=== PATIENT | male | born 1970 | race Caucasian/White ===

== ENCOUNTER 2018-08-04 16:01 | Inpatient (IN) ==
[2018-08-04] MEDS ORDERED: ASPIRIN PO ONE ×2 (16:25→16:51)
[2018-08-04] MEDS ORDERED: ASPIRIN PR ONE (16:25)
[2018-08-04 16:55] LABS: ALLEN TEST YES; BE 6.6 mmoll (-3.0-3.0); BLOOD TYPE ARTERIAL; HCO3-(ACT) 29.9 mmoll (20.0-26.0); METHB 1.2 % (0.0-1.5); O2(CT) 20.7 mL/dL (15.0-23.0); O2HB 93.4 % (95.0-99.0); PO2(98.6) 134 mmHg (60-100); SAMPLE BLOOD; SAO2 99.2 % (95.0-100.0); THB 15.6 g/dL (11.5-17.4); pH(98.6) 7.29 (7.35-7.45)
[2018-08-04 16:56] LABS: MODALITY NRB; PCO2(98.6) 76 mmHg (35-45)
[2018-08-04 16:58] LABS: BASO# 0.07 X1000 (0.0-0.2); BASO% 0.4 % (0.0-0.8); EOS# 0.15 X1000 (0.0-0.7); EOS% 0.8 % (0.0-10.0); HEMATOCRIT 51.1 % (42.0-52.0); HEMOGLOBIN 15.6 g/dL (14.0-18.0); IMM GRAN# 0.05 X1000 (0.0-0.04); IMM GRAN% 0.3 % (0.0-0.5); INR 1.08; LYMPH# 1.06 X1000 (1.2-3.4); LYMPH% 5.7 % (20.5-51.1); MCH 28.8 PG (27-31); MCHC 30.5 g/dL (33-37); MCV 94.5 FL (81-99); MONO# 1.92 X1000 (0.11-0.59); MONO% 10.3 % (1.7-9.3); MPV 10.7 FL (7.4-10.4); NEUT# 15.43 X1000 (1.4-6.5); NEUT% 82.5 % (42.2-75.2); PLT 342 X1000 (130-400); PROTIME 14.9 Seconds (11.0-16.0); RBC 5.41 XMIL (4.7-6.1); RDW 14.9 % (11.5-14.5); WBC 18.68 X1000 (4.8-10.8)
[2018-08-04] MEDS ORDERED: DUONEB (A & A) INH ONE (16:58)
[2018-08-04] MEDS ORDERED: SOLU-MEDROL IV ONE (16:58)
[2018-08-04 16:59] LABS: PTT 34.1 Seconds (22.3-41.8)
[2018-08-04] MEDS ORDERED: ROCEPHIN 1 GM in NS 50 ML IV ONE (17:03)
[2018-08-04 17:04] LABS: AGAP 9; ALB/GLOB RATIO 1.2; ALBUMIN 3.9 g/dL (3.5-5.0); ALKALINE PHOSPHATASE 119 U/L (32-122); BUN 17 mg/dL (8-22); CALCIUM 8.9 mg/dL (8.8-10.2); CHLORIDE 95 mmol/L (98-107); CK PROFILE 74 U/L (24-204); COSMO 285; CREATININE 0.6 mg/dL (0.7-1.2); ESTIMATED GFR > 60; GLUCOSE 111 mg/dL (70-104); GOT 44 U/L (10-34); GPT 119 U/L (10-44); POTASSIUM 4.1 mmol/L (3.5-5.1); SODIUM 142 mmol/L (136-145); TCO2 38 mmol/L (25-35); TOTAL BILIRUBIN 0.46 mg/dL (0.20-1.00); TOTAL PROTEIN 7.2 g/dL (6.3-8.3)
[2018-08-04] MEDS ORDERED: NS 1,000 ML IV ONE (17:04)
--- NOTE | 2018-08-04 17:35 | Diag Imaging Result Doc PS360 ---
EXAM: CHEST-PORTABLE HISTORY: SOB, WHEEZE TECHNIQUE: Portable chest single view COMPARISON: 06/10/2017 FINDINGS: The lungs are well expanded. The heart is not enlarged. There is mild vascular distention. There are no infiltrates. No effusion identified. IMPRESSION: Mild pulmonary edema. Electronically signed by Nathan Guallpa 08/04/2018 5:33 PM
[2018-08-04] MEDS ORDERED: LASIX IV ONE ×2 (17:52→20:14)
--- NOTE | 2018-08-04 17:55 | PROVIDER DOCUMENTATION ---
This chart was entered by Evelyne Bennett Scribe, acting as scribe for Ana Tristan MD. HPI-Respiratory General - General Chief Complaint: Shortness of Breath Stated Complaint: SOB/FEET SWOLLEN Time Seen by Provider: 08/04/18 16:22 Source: patient, family () Unable to obtain history due to:: urgency Allergies/Adverse Reactions: Patient Allergies Allergy/AdvReac Type Severity Reaction Status Date / Time ibuprofen Allergy NAUSEA/VOMI Verified 02/08/18 15:43 TING tramadol Allergy NAUSEA/VOMI Verified 02/08/18 15:43 TING Home Medications: Home Medication List Medication Instructions Recorded Confirmed Last Taken Type Budesonide/Formoterol Fumarate 10.2 gm XX PRN PRN 02/08/18 08/04/18 02/08/18 History [Symbicort 160-4.5 Mcg Inhaler] Buprenorphine S.l. [Subutex] 8 mg SL BID 08/04/18 08/04/18 Unknown History - History of Present Illness-Resp Nature of Presenting Problem: 48 yowm presents to the ed with c/o worsening sob and BLE edema with productive cough. pt has COPD and a known smoker. pt denies CHF. pt came in today with O2 sat 67%on RA and was placed on non rebreather at 15LPM with O2 sat 97% Quality of Pain: reports: aching (bilateral ankle pain) Severity in ED: reports: severe (sob) Onset/Duration: reports: gradual Timing: reports: still present Exposure: reports: unknown cause Cough Quality/Degree: reports: moderate, productive cough (green sputum) Episode Frequency: occasional episodes Current Respiratory Medication Therapy: Initiated see nurses note Modifying Factors: improves with: oxygen. worse with: exertion, lying down Associated Symptoms: reports: cough, shortness of breath, other (BLE edema/ bilateral ankle pain). denies: chest pain/soreness, dizziness, fever/chills Similar Symptoms Previously?: Yes (copd) Recently seen or treated by another doctor?: No Review of Systems - Adult - REVIEW OF SYSTEMS - ADULT ROS:: ROS per family ( at bedside) Constitutional: reports: weight loss (30lbs in 1 year). denies: chills, fever Eyes: reports: no symptoms reported Ears, Nose, Mouth & Throat: reports: no symptoms reported Cardiovascular: reports: see HPI, edema. denies: chest pain, palpitations Respiratory: reports: see HPI, cough, excessive sputum production (green), shortness of breath, wheezing Gastrointestinal: denies: diarrhea, nausea, vomiting Genitourinary: reports: no symptoms reported Musculoskeletal: reports: no symptoms reported Integumentary: reports: no symptoms reported Neurological: denies: dizziness/vertigo, headache/migraines Psychiatric: reports: no symptoms reported Endocrine: reports: no symptoms reported Hematologic/Lymphatic: reports: no symptoms reported Allergic/Immunologic: reports: no symptoms reported All Other Systems: Reviewed and Negative Past History - Adult - PAST MEDICAL HISTORY-ADULT Review of Records: reports: Old Records Reviewed, Nursing Assessment Review, Medications Reviewed, Social history reviewed & non-contributory. Major Childhood Illnesses: reports: denies history Cardiovascular: reports: denies history Respiratory: reports: COPD Gastrointestinal: reports: denies history Obstetrical/Gynecological: reports: denies history Genitourinary: reports: denies history Musculoskeletal: reports: arthritis, chronic pain, neck/back injury Neurological: reports: denies history Psychiatric: reports: denies history Endocrine/Immune: reports: denies history Other Conditions: reports: denies history - PRIOR SURGERIES/PROCEDURES Surgical/Procedure History: reports: appendectomy - IMMUNIZATION STATUS Childhood Immunizations: See Nurse Assessment Flu Vaccine: See Nurse Assessment - FAMILY HISTORY Family History: reviewed, not pertinent - SOCIAL HISTORY Smoking: cigarettes, less than 1 pack/day Provider spent 3-5 mins advising pt. on dangers of tobacco.: Discussed manners to quit use, and f/u contacts for add'l counseling. Substance Use: denies Alcohol Use Frequency: never Living Situation: family Physical Exam-General - PHYSICAL EXAM-ADULT Initial Vital Signs Reviewed: Yes - CONSTITUTIONAL General Appearance: alert, moderate distress. negative: appears well - EYES Eyes: PERRL/EOMI, pink conjunctivae - HEAD, EARS, NOSE, MOUTH & THROAT HENMT: moist mucous membranes - NECK Neck: normal inspection - RESPIRATORY Respiratory: respiratory distress, decreased breath sounds, accessory muscle use , wheezing. negative: crackles, rales, rhonchi - CARDIOVASCULAR Cardiovascular: normal peripheral pulses, tachycardia (102) - GASTROINTESTINAL (ABDOMEN) Abdominal Exam: normal bowel sounds, non tender, soft - LYMPHATIC Lymphatic: no adenopathy - MUSCULOSKELETAL Back Exam: normal inspection Extremity: normal capillary refill, pelvis stable, pedal edema, swelling (BLE edema), tenderness (ilateral ankle pain with edema) DTR: ankle (R): 2+, ankle (L): 2+ - SKIN Integumentary: warm/dry, pallor - NEUROLOGIC Neurologic: grossly normal, no motor/sensory deficits - PSYCHIATRIC Psych/Mental Status: normal mood/affect, normal thought content, normal thought process, oriented x 3 Progress - PLAN OF CARE/RESULTS Progress/Plan/Lab Results: Vital Signs - 8 hr 08/04/18 16:06 08/04/18 16:19 08/04/18 16:29 Temperature 98.7 F Pulse Rate 101 H 100 H 94 H Respiratory Rate 22 21 16 Blood Pressure 116/70 103/71 115/77 O2 Sat by Pulse Oximetry 67 L 88 L 100 08/04/18 16:33 08/04/18 17:02 08/04/18 17:17 Temperature Pulse Rate 96 H 89 83 Respiratory Rate 17 17 20 Blood Pressure 110/78 110/79 O2 Sat by Pulse Oximetry 100 100 100 08/04/18 17:20 08/04/18 17:30 08/04/18 17:32 Temperature Pulse Rate 85 89 90 Respiratory Rate 19 18 18 Blood Pressure 114/76 O2 Sat by Pulse Oximetry 100 100 100 08/04/18 17:40 Temperature Pulse Rate 84 Respiratory Rate 18 Blood Pressure O2 Sat by Pulse Oximetry 100 Laboratory Results - last 24 hr 08/04/18 08/04/18 08/04/18 16:20 16:20 16:20 WBC 18.68 H RBC 5.41 Hgb 15.6 Hct 51.1 MCV 94.5 MCH 28.8 MCHC 30.5 L RDW Std Deviation 14.9 H Plt Count 342 MPV 10.7 H Immature Gran % (Auto) 0.3 Neut % (Auto) 82.5 H Lymph % (Auto) 5.7 L [place] % (Auto) 10.3 H Eos % (Auto) 0.8 Baso % (Auto) 0.4 Immature Gran # (Auto) 0.05 H Neut # (Auto) 15.43 H Lymph # (Auto) 1.06 L [place] # (Auto) 1.92 H Eos # (Auto) 0.15 Baso # (Auto) 0.07 PT INR PTT (Actin FS) Specimen Type Sample Site pH pCO2 pO2 HCO3 Base Excess Oxyhemoglobin ABG O2 Sat (Calculated) ABG O2 Saturation ABG Carboxyhemoglobin ABG Methemoglobin Levi Test A-a O2 Difference Total Hemoglobin Lactate Liter Flow Blood Gas Modality FiO2 % Sodium 142 Potassium 4.1 Chloride 95 L Carbon Dioxide 38 H Anion Gap 9 BUN 17 Creatinine 0.6 L Estimated GFR/1.73 m2 > 60 BUN/Creatinine Ratio 28 Glucose 111 H Calculated Osmolality 285 Calcium 8.9 Total Bilirubin 0.46 AST 44 H ALT 119 H Alkaline Phosphatase 119 Creatine Kinase 74 Troponin T Mbv-D-Midtaxuzsmz Pept 3590 H Total Protein 7.2 Albumin 3.9 Globulin 3.3 Albumin/Globulin Ratio 1.2 08/04/18 08/04/18 08/04/18 16:20 16:20 16:37 WBC RBC Hgb Hct MCV MCH MCHC RDW Std Deviation Plt Count MPV Immature Gran % (Auto) Neut % (Auto) Lymph % (Auto) [place] % (Auto) Eos % (Auto) Baso % (Auto) Immature Gran # (Auto) Neut # (Auto) Lymph # (Auto) [place] # (Auto) Eos # (Auto) Baso # (Auto) PT 14.9 INR 1.08 PTT (Actin FS) 34.1 Specimen Type ARTERIAL Sample Site R RADIAL pH 7.29 L pCO2 76 H* pO2 134 H HCO3 29.9 H Base Excess 6.6 H Oxyhemoglobin 93.4 L ABG O2 Sat (Calculated) 20.7 ABG O2 Saturation 99.2 ABG Carboxyhemoglobin 4.50 H ABG Methemoglobin 1.2 Levi Test YES A-a O2 Difference 484.0 Total Hemoglobin 15.6 Lactate 1.90 Liter Flow 15.0 Blood Gas Modality NRB FiO2 % 100.0 Sodium Potassium Chloride Carbon Dioxide Anion Gap BUN Creatinine Estimated GFR/1.73 m2 BUN/Creatinine Ratio Glucose Calculated Osmolality Calcium Total Bilirubin AST ALT Alkaline Phosphatase Creatine Kinase Troponin T < 0.010 Lmi-K-Nzwyynjuiuj Pept Total Protein Albumin Globulin Albumin/Globulin Ratio Orders Category Date Time Status Cardiac Monitoring DIRECTED Care 08/04/18 16:25 Active Oxygen Therapy- ED Nursing DIRECTED Care 08/04/18 16:25 Active Saline Loc NOW Care 08/04/18 16:25 Active CHEST-PORTABLE [RAD] Stat Exams 08/04/18 16:25 Completed ABG [RESP] Routine Lab 08/04/18 16:37 Completed CBC WITH ELECTRONIC DIFF [HEME] Stat Lab 08/04/18 16:20 Completed CK PROFILE [SP CHEM] Stat Lab 08/04/18 16:20 Completed COMPREHENSIVE METABOLIC PANEL [CHEM] Stat Lab 08/04/18 16:20 Completed PRO B-NATRIURETIC PEPTIDE Stat Lab 08/04/18 16:20 Completed PROTIME WITH INR [COAG] Stat Lab 08/04/18 16:20 Completed PTT [COAG] Stat Lab 08/04/18 16:20 Completed TROPONIN T Stat Lab 08/04/18 16:20 Completed 0.9% Sodium Chloride Inj [Ns] 1,000 ml Med 08/04/18 17:04 Active IV 999 mls/hr Albuterol 2.5MG/Ipratrop 0.5MG [Duoneb (A & A)] Med 08/04/18 16:58 Discontinued 9 ml INH NOW ONE Aspirin Med 08/04/18 16:25 Discontinued 300 mg AK NOW ONE Aspirin Med 08/04/18 16:25 Discontinued 325 mg PO NOW ONE Aspirin Med 08/04/18 16:51 Discontinued 325 mg PO NOW ONE CefTRIAXONE [Rocephin] 1 gm Med 08/04/18 17:03 Discontinued 0.9% Sodium Chloride Inj [Ns] 50 ml IV NOW Methylprednisolone Sod Succ [Solu-Medrol] Med 08/04/18 16:58 Discontinued 80 mg IV NOW ONE Aerosol Treatments Routine Oth 08/04/18 16:58 Completed Aerosol Treatments Stat Oth 08/04/18 16:58 Completed BIPAP Stat Oth 08/04/18 16:59 Active CP/SOB/Palp >45 yrs of Age Stat Oth 08/04/18 16:25 Ordered EKG [EKG] Stat Ther 08/04/18 16:25 Ordered Transfer/Admit Order [TRANSFER] Routine Transfer 08/04/18 17:13 Ordered Result Diagrams: 08/04/18 16:20 08/04/18 16:20 - REASSESSMENT Reassessment #1 Time Reassessed: 16:38 Status: improving Reassessment #2 Time Reassessed: 17:34 Status: improving (Now on Bipap.) - EKG 1 Time of EKG reading by physician:: 16:09 EKG Read and Signed by:: Rachel Bradshaw EKG Interpretation (*Must complete 3 of following elements*): Abnormal Rate: 97 Rhythm: nsr [place]: normal QRS: other (right atrial enlargement) AK Interval: normal ST Wave: normal Comments: nonspecific t wave abnormality/prolonged QT - XRAY 1 XRAY: Bilateral XRAY Study: Chest (EXAM: CHEST-PORTABLE HISTORY: SOB, WHEEZE TECHNIQUE: Portable chest single view COMPARISON: 06/10/2017 FINDINGS: The lungs are well expanded. The heart is not enlarged. There is mild vascular distention. There are no infiltrates. No effusion identified. IMPRESSION: Mild pulmonary edema. Electronically signed by Nathan Guallpa 08/04/2018 5:33 PM) Impression: See EMR Report (EXAM: CHEST-PORTABLE HISTORY: SOB, WHEEZE TECHNIQUE: Portable chest single view COMPARISON: 06/10/2017 FINDINGS: The lungs are well expanded. The heart is not enlarged. There is mild vascular distention. There are no infiltrates. No effusion identified. IMPRESSION: Mild pulmonary edema. Electronically signed by Nathan Guallpa 08/04/2018 5: 33 PM 08/04/18 1733 Interpreting Physician: Nathan Guallpa MD Dictated Date/Time: 08/04/18 1733 cc: Ana Strickland MD; Dalton Núñez Departure - Departure Date of Disposition Decision: 08/04/18 Time of Disposition Decision: 17:16 DIAGNOSIS: COPD exacerbation, Tobacco use disorder, SOB (shortness of breath) Sepsis Qualifiers: Sepsis type: sepsis due to unspecified organism Qualified Code(s): A41.9 - Sepsis, unspecified organism Pulmonary edema Qualifiers: Chronicity: acute Qualified Code(s): J81.0 - Acute pulmonary edema Disposition: ADMITTED INPATIENT 09 Certified Medical Emergency: Emergent Condition: Stable - Critical Care Note This patient required my direct & personal management of CC.: Yes Total Time (mins): 42 Critical Care Statement: This patient required my direct personal management to treat or rule out processes, the absence of which, could potentiallly result in sudden, clinically significant life or limb threatening deterioration. Attestation - Physician/ ROLF Attestation Patient care was provided by Advanced Practice Provider:: No The physician spent face to face time with patient:: Yes Advanced Practice Provider documentation review:: Supervising physician onsite and consulted in the evaluation and care of this patient. The physician did have a face to face encounter with the patient. This chart was documented by the indicated scribe, (Evelyne Bennett Scribe) and accurately reflects the services I performed and decisions made by me, Ana Tristan MD, as attested by the provider's signature.
[2018-08-04 18:14] LABS: ALLEN TEST YES; BE 7.9 mmoll (-3.0-3.0); BLOOD TYPE ARTERIAL; METHB 1.3 % (0.0-1.5); O2(CT) 20.2 mL/dL (15.0-23.0); O2HB 93.8 % (95.0-99.0); PO2(98.6) 123 mmHg (60-100); SAMPLE BLOOD; SAO2 98.7 % (95.0-100.0); SRATE 18 BPM; THB 15.2 g/dL (11.5-17.4); pH(98.6) 7.27 (7.35-7.45)
[2018-08-04 18:15] LABS: MODALITY BI PAP
[2018-08-04 18:16] LABS: PCO2(98.6) 84 mmHg (35-45)
[2018-08-04] MEDS ORDERED: DUONEB (A & A) INH PRN (19:18)
[2018-08-04] MEDS ORDERED: ZOFRAN IV PRN (19:18)
[2018-08-04] MEDS ORDERED: TYLENOL PO PRN (19:18)
[2018-08-04] MEDS: DUONEB (A & A) INH SCH ×2 (19:30→23:30)
[2018-08-04] MEDS: LEVAQUIN 750 MG/D5W 750 MG/150 ML IVPB IV SCH (19:47)
--- NOTE | 2018-08-04 20:44 | HISTORY AND PHYSICAL ---
CHIEF COMPLAINT: Shortness of breath for about 2 weeks. HISTORY OF PRESENT ILLNESS: Ms CAMERON Jnesen is a 48-year-old male, who has a history of COPD and also chronic tobacco use. He presents to the hospital because of shortness of breath, which has been ongoing for the last 2 weeks. He also describes having cough along with wheezing and also chest pain. When he presented to the hospital, x-ray of his chest showed evidence of mild pulmonary edema. His ABG was read as 7.27/84/123/98.7%. ProBNP level was found to be 3590. The patient has been started on a BiPAP, and he will be transferred to the intensive care unit now for further management. PAST MEDICAL HISTORY: COPD. SOCIAL HISTORY: He smokes cigarettes. No alcohol or drug use. PAST SURGICAL HISTORY: He has had appendectomy. ALLERGIES: He is allergic to ibuprofen as well as tramadol. MEDICATION: Symbicort as well as Subutex 8 mg sublingual twice a day. 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 ENT: No sinus problem. Cardiovascular: Has chest pain. Respiratory: As in History of Present Illness. Gastrointestinal: No nausea/vomiting, diarrhea. Genitourinary: No dysuria. Dermatology: No skin lesions. Hematology: No bleeding problems. Endocrinology: No diabetes or thyroid disease. EXAMINATION: Vital Signs: Temperature 98.7 degrees, pulse 101, respiratory rate 22, blood pressure 169/70, oxygen saturation is 67%. HEENT: He is atraumatic, normocephalic. Eyes anicteric. Has a BiPAP mask in place. Neck: No lymphadenopathy or thyromegaly. Cardiovascular: S1, S2. Respiratory: Has evidence of good entry bilaterally. Abdomen: Soft, nontender. No masses felt. Extremities: No evidence of edema. Central nervous system: No obvious focal deficit noted. DIAGNOSTIC DATA: WBC is 18.6, hematocrit is 51.1, with a platelet count of 342, 000. ABG 7.27/84/123/98.7%. Chemistry: Sodium 142, potassium 4.1, chloride is 95, bicarbonate is 38, BUN is 17, creatinine 0.6, AST is 44, ALT 119. ProBNP is 3590. X-ray chest shows mild pulmonary edema. ASSESSMENT AND PLAN: This is a 48-year-old male who has a history of chronic tobacco use. He presented to the hospital because of shortness of breath. He does have significant carbon dioxide (CO2) retention. 1. Acute respiratory failure secondary to chronic obstructive pulmonary disease (COPD) exacerbation, as well as pulmonary edema. We will maintain the patient on BiPAP, and we will make changes based on patient's arterial blood gases. We will treat chronic obstructive pulmonary disease (COPD) as well as pulmonary edema. Maintain patient on oxygen. 2. Chronic obstructive pulmonary disease exacerbation. Place patient on nebulized bronchodilators, steroids, as well as antibiotics. Follow up on patient's clinical progression, including chest x-ray as well as arterial blood gases (ABG). 3. Pulmonary edema. We will place patient on diuretics. Monitor intakes and outputs, as well as daily weights. Get a 2D echocardiogram of the heart. We will also get serial cardiac enzymes. 4. Abnormal liver function test. We will get hepatitis panel, CHON level, ferritin level as well as abdominal ultrasound. 5. Deep vein thrombosis (DVT) prophylaxis. Sequential compression devices (SCDs ). 6. Gastrointestinal (GI) prophylaxis. Proton pump inhibitor (PPI). 7. Tobacco use history. Recommend nicotine patch. cc: Honorio Davies MD MTDD
[2018-08-04] MEDS: NS 1,000 ML IV SCH (22:21)
[2018-08-05] MEDS: SOLU-MEDROL IV SCH ×5 (01:22→23:55)
[2018-08-05] MEDS: DUONEB (A & A) INH SCH ×6 (03:15→23:20)
[2018-08-05 05:18] LABS: ALLEN TEST YES; BE 10.8 mmoll (-3.0-3.0); BLOOD TYPE ARTERIAL; HCO3-(ACT) 33.2 mmoll (20.0-26.0); METHB 0.9 % (0.0-1.5); O2(CT) 21.3 mL/dL (15.0-23.0); O2HB 93.4 % (95.0-99.0); PO2(98.6) 78 mmHg (60-100); SAMPLE BLOOD; SAO2 96.6 % (95.0-100.0); THB 16.2 g/dL (11.5-17.4); pH(98.6) 7.32 (7.35-7.45)
[2018-08-05 05:22] LABS: MODALITY NRB
[2018-08-05 05:24] LABS: PCO2(98.6) 80 mmHg (35-45)
[2018-08-05 06:51] LABS: BASO# 0.02 X1000 (0.0-0.2); BASO% 0.1 % (0.0-0.8); HEMATOCRIT 49.3 % (42.0-52.0); HEMOGLOBIN 15.4 g/dL (14.0-18.0); IMM GRAN# 0.02 X1000 (0.0-0.04); IMM GRAN% 0.1 % (0.0-0.5); LYMPH# 0.48 X1000 (1.2-3.4); MCH 29.3 PG (27-31); MCHC 31.2 g/dL (33-37); MCV 93.7 FL (81-99); MONO# 0.16 X1000 (0.11-0.59); MPV 10.6 FL (7.4-10.4); NEUT# 15.31 X1000 (1.4-6.5); NEUT% 95.8 % (42.2-75.2); PLT 334 X1000 (130-400); RBC 5.26 XMIL (4.7-6.1); RDW 14.7 % (11.5-14.5); WBC 15.99 X1000 (4.8-10.8)
--- NOTE | 2018-08-05 07:04 | Diag Imaging Result Doc PS360 ---
EXAM: CHEST-PORTABLE 08/05/2018 HISTORY: short of breath TECHNIQUE: AP portable at 0542 COMMENT: There is minimal interstitial opacity bilaterally similar in appearance to 08/04/2018 it is clearly worse than on the previous study of 06/10/2017. IMPRESSION: Mild interstitial pulmonary edema. Electronically signed by Zeeshan Recinos 08/05/2018 7:02 AM
[2018-08-05 07:11] LABS: AGAP 11; ALBUMIN 3.4 g/dL (3.5-5.0); ALKALINE PHOSPHATASE 116 U/L (32-122); BUN 15 mg/dL (8-22); CHLORIDE 94 mmol/L (98-107); COSMO 292; CREATININE 0.7 mg/dL (0.7-1.2); ESTIMATED GFR > 60; GLUCOSE 138 mg/dL (70-104); GOT 28 U/L (10-34); GPT 94 U/L (10-44); POTASSIUM 4.5 mmol/L (3.5-5.1); SODIUM 145 mmol/L (136-145); TCO2 40 mmol/L (25-35); TOTAL BILIRUBIN 0.49 mg/dL (0.20-1.00); TOTAL PROTEIN 6.8 g/dL (6.3-8.3)
[2018-08-05 07:14] LABS: BANDS 4 % (0-1); LYMPHS 2 % (21-51); SEGS 94 % (42-75)
--- NOTE | 2018-08-05 07:14 | Diag Imaging Result Doc PS360 ---
EXAM: US ABDOMEN-COMPLETE 08/05/2018 HISTORY: Transaminitis TECHNIQUE: Abdominal ultrasound COMMENT: The pancreas is normal in appearance. The aorta and inferior vena cava are within normal limits. The liver is unremarkable. The common bile duct measures less than 6 mm. There is antegrade flow in the portal vein. The kidneys are hyperechoic. There is no evidence of hydronephrosis. The gallbladder is clear and nontender. The spleen is not enlarged. IMPRESSION: The possibility of medical renal disease cannot be excluded. Otherwise no evidence of acute disease. Electronically signed by Zeeshan Recinos 08/05/2018 7:13 AM
--- NOTE | 2018-08-05 07:21 | EKG Report ---
Test Performed on : 08/04/2018 4:09:56 PM Test Reason : SOB Blood Pressure : / mmHG Vent. Rate : 097 BPM Atrial Rate : 097 BPM P-R Int : 138 ms QRS Dur : 096 ms QT Int : 368 ms P-R-T Axes : 084 066 082 degrees QTc Int : 467 ms Normal sinus rhythm. Right atrial enlargement Nonspecific T wave abnormality Prolonged QT Abnormal ECG No previous ECGs available Unconfirmed Result
[2018-08-05] MEDS: PROTONIX PO SCH (08:20)
[2018-08-05] MEDS: NORCO-7.5 PO PRN (08:20)
[2018-08-05 09:06] LABS: URINE SOURCE CLEAN CATCH
[2018-08-05 09:17] LABS: BILIRUBIN URINE NEGATIVE (NEGATIVE); BLOOD URINE NEGATIVE (NEGATIVE); COLOR YELLOW; GLUCOSE URINE NEGATIVE (NEGATIVE); KETONE URINE NEGATIVE (NEGATIVE); LEUKOCYTES URINE NEGATIVE (NEGATIVE); NITRITE URINE NEGATIVE (NEGATIVE); PROTEIN URINE NEGATIVE (NEGATIVE); TURBIDITY URINE CLEAR (CLEAR); UROBILINOGEN URINE NORMAL (NORMAL)
[2018-08-05 09:19] LABS: UR EPITHELIAL CELLS <10 /HPF (<10); URINE BACTERIA NEGATIVE /HPF; URINE RBC <10 /HPF (<10); URINE WBC <10 /HPF (<10)
[2018-08-05 10:37] LABS: ALLEN TEST NO; BE 11.6 mmoll (-3.0-3.0); BLOOD TYPE ARTERIAL; HCO3-(ACT) 33.7 mmoll (20.0-26.0); METHB 0.9 % (0.0-1.5); O2(CT) 19.3 mL/dL (15.0-23.0); PO2(98.6) 57 mmHg (60-100); SAMPLE BLOOD; SAO2 92.1 % (95.0-100.0); THB 15.4 g/dL (11.5-17.4); pH(98.6) 7.37 (7.35-7.45)
[2018-08-05 10:40] LABS: MODALITY BI PAP; O2HB 89.2 % (95.0-99.0); PCO2(98.6) 70 mmHg (35-45)
[2018-08-05] MEDS: NS 1,000 ML IV SCH (12:03)
--- NOTE | 2018-08-05 15:17 | CONSULTATION ---
DATE OF CONSULTATION: 08/05/2018 REQUESTING PROVIDER: JEFF Brown, and Honorio Davies MD. REASON FOR CONSULTATION: Acute respiratory failure, COPD, and pneumonia. HISTORY OF PRESENT ILLNESS: This is a 48-year-old male with a medical history of COPD, arthritis, chronic pain, and chronic tobacco abuse. He presented to the ER yesterday with worsening shortness of breath, productive cough with excessive greenish sputum, wheezing, and bilateral lower extremity edema. In the ER, the patient was hypoxemic with oxygen saturation of 67 at room air. Lab revealed white blood cells 18.68, carbon dioxide 38, AST 44, ALT of 119, proBNP 3,590, pH 7.29, pCO2 76, PO2 134, HC03 29.9, base excess 6.9, and oxyhemoglobin 93.4. Chest x-ray revealed mild pulmonary edema. He has been admitted to the [facility] for further evaluation and management. At the time of my examination, patient is on BiPAP with his at the bedside. He states that he is feeling better. He still reports productive cough, shortness of breath, and improved pedal edema with stable bilateral ankle pain. He also reports paroxysmal nocturnal dyspnea and mild stable chest pain. He denies fever, chills, nausea, vomiting, constipation, diarrhea, or palpitations. PAST MEDICAL AND SURGICAL HISTORY: 1. COPD. 2. Arthritis. 3. Chronic pain due to degenerative disk disease in the neck and low back, on Subutex at home. 4. Chronic tobacco abuse. 5. Appendectomy. SOCIAL HISTORY: The patient just got last Friday. He lives with family. He smokes 1-2 packs per day for over 40 years. He stated he would like to try to quit smoking without medication. He quit drinking for about 30 years after he drank for more than 10 years. He reports that he started drinking when he was very young. He denies a history of illicit drug use. FAMILY HISTORY: Mother of lung cancer. Father in his sleep. ALLERGIES: Ibuprofen, tramadol. REVIEW OF SYSTEMS: A 10 point review of systems was conducted and the pertinent is listed within the HPI, otherwise noncontributory. PHYSICAL EXAMINATION: Vital Signs: Temperature 99.0 degrees, blood pressure 108/74, pulse 78, respiratory rate 25, oxygen saturation 92% on non-rebreather with FiO2 100%. General: The patient appears older than stated age. He coughs frequently with yellow- greenish, thick sputum. He is lying on the bed in mild respiratory distress. He is currently on BiPAP. He stated he could not tolerate BiPAP. HEENT: Atraumatic. Trachea midline. Mucous pink and dry. Respiratory: Rapid and shallow. Chest expansion equal bilaterally. Diminished breathing sounds bibasilarly with mild expiratory wheezing and rhonchi noted. Cardiovascular: Regular rate and rhythm without murmur noted. Gastrointestinal: Normoactive bowel sounds in all 4 quadrants. Soft, nontender, and nondistended. Extremities: Trace pedal edema. No cyanosis. No clubbing. Dorsalis pedis pulse 2+ bilaterally. Neurologic: Alert and oriented x3. Cooperative, Speech fluent. IMAGING DATA: Chest x-ray revealed mild interstitial pulmonary edema. LAB DATA: White blood cell 15.99, hemoglobin 15.4, hematocrit 49.3, platelets 334,000. Sodium 145, potassium 4.5, chloride 94, carbon dioxide 40, BUN 15, creatinine 0.7, glucose 138, AST 28, ALT 94. ABG, pH 7.37, pCO2 70, PO2 57, HC03 33.7, base excess 11.6, and oxyhemoglobin 89.2 on BiPAP 20/10 with FiO2 60%. ASSESSMENT: This is a 48-year-old male with medical history of chronic obstructive pulmonary disease, arthritis, chronic pain, and chronic tobacco abuse. He has been admitted to the CICU with acute respiratory failure, chronic obstructive pulmonary disease exacerbation, pulmonary edema, and elevated liver function tests. 1. Acute hypoxemic hypercapnic respiratory failure secondary to chronic obstructive pulmonary disease exacerbation and pulmonary edema. 2. Chronic obstructive pulmonary disease exacerbation. 3. Pulmonary edema with pedal edema. 4. Transaminitis. 5. Chronic tobacco abuse. PLAN: 1. Continue antibiotics, steroids, and bronchodilators. 2. Routine ABG, CBC, CMP, and chest x-ray. 3. Continue supplemental oxygen and BiPAP at bedtime and as needed. 4. Agree to get a 2D echocardiogram. Consider Cardiology consultation if needed. 5. Agree to get hepatitis panel. Lab this morning shows improved liver function tests. 6. Consider diuretics if indicated. 7. The final results of blood culture and sputum culture are pending. 8. Continue nicotine patch and daily education about smoking cessation. 9. Continue GI and DVT prophylaxis. Thank you for the courtesy of this consult. Dictated by JEFF Valenzuela for Elaine Yañez MD cc: JEFF Valenzuela MD [facility]
[2018-08-05] MEDS: NICODERM PATCH TD PRN (15:27)
--- NOTE | 2018-08-05 15:41 | PROGRESS NOTE ---
DATE: 08/05/2018 SUBJECTIVE: The patient resting in bed. He is currently off his BiPAP, and currently he is currently on a Ventimask. OBJECTIVE: Vital Signs: Temperature 98.6 degrees, pulse is 85, respirations 20, blood pressure is 109/64, oxygen saturation is 93%. HEENT: Atraumatic, normocephalic. Cardiovascular: S1, S2. Respiratory: Occasional rhonchi in the lung sierra. Abdomen: Soft, nontender. No masses. Extremities: No evidence of edema. Central nervous system: No obvious focal deficit noted. DIAGNOSTIC DATA: WBC is 15.9, hematocrit is 49.3 with a platelet count of 334,000. AB.37/70/57/89.2%. Sodium is 144, potassium 4.5, chloride 94, bicarbonate is [*], BUN 15, creatinine 0.7. ProBNP 3590. AST down to 28, ALT [*]. ASSESSMENT AND PLAN: 1. Acute respiratory failure secondary to chronic obstructive pulmonary disease (COPD) exacerbation, as well as pulmonary edema. The patient is currently off BiPAP. We will maintain him on a Ventimask, but he will need to still cycle the BiPAP. We will continue to use nebulized bronchodilators as well as steroids and also antibiotics for his chronic obstructive pulmonary disease (COPD) and also maintain him on diuretics for his pulmonary edema. A 2D echocardiogram of the heart result pending. 2. Abnormal liver function tests. Follow up on hepatitis panel, as well as CHON level. Abdominal ultrasound does not show any significant hepatic pathology. 3. Tobacco use history. The patient understands the importance of smoking cessation and has plan to quit. 4. Deep vein thrombosis (DVT) prophylaxis. Sequential compression devices (sequential compression devices). 5. Gastrointestinal (GI) prophylaxis. Proton pump inhibitor (PPI). cc: Honorio Davies MD
[2018-08-05 16:48] LABS: AGAP 11; ALB/GLOB RATIO 0.9; ALBUMIN 3.2 g/dL (3.5-5.0); ALKALINE PHOSPHATASE 97 U/L (32-122); BUN 22 mg/dL (8-22); CALCIUM 8.4 mg/dL (8.8-10.2); CHLORIDE 95 mmol/L (98-107); COSMO 288; CREATININE 0.7 mg/dL (0.7-1.2); ESTIMATED GFR > 60; GLUCOSE 186 mg/dL (70-104); GOT 20 U/L (10-34); GPT 77 U/L (10-44); POTASSIUM 3.8 mmol/L (3.5-5.1); SODIUM 140 mmol/L (136-145); TCO2 34 mmol/L (25-35); TOTAL BILIRUBIN 0.31 mg/dL (0.20-1.00); TOTAL PROTEIN 6.6 g/dL (6.3-8.3)
[2018-08-05] MEDS ORDERED: ROCEPHIN 1 GM in NS 50 ML IV SCH (17:15)
[2018-08-05] MEDS: LEVAQUIN 750 MG/D5W 750 MG/150 ML IVPB IV SCH (18:42)
[2018-08-06] MEDS: NORCO-7.5 PO PRN ×4 (01:42→23:51)
[2018-08-06] MEDS: NS 1,000 ML IV SCH ×2 (02:35→16:23)
[2018-08-06] MEDS: DUONEB (A & A) INH SCH ×6 (03:15→23:25)
[2018-08-06 04:18] LABS: ALLEN TEST YES; BE 9.9 mmoll (-3.0-3.0); BLOOD TYPE ARTERIAL; HCO3-(ACT) 32.6 mmoll (20.0-26.0); O2(CT) 19.5 mL/dL (15.0-23.0); O2HB 95.3 % (95.0-99.0); PO2(98.6) 89 mmHg (60-100); SAMPLE BLOOD; THB 14.5 g/dL (11.5-17.4)
[2018-08-06 04:20] LABS: MODALITY BI PAP; PCO2(98.6) 60 mmHg (35-45)
[2018-08-06 05:32] LABS: BASO# 0.02 X1000 (0.0-0.2); BASO% 0.1 % (0.0-0.8); HEMATOCRIT 45.3 % (42.0-52.0); HEMOGLOBIN 14.6 g/dL (14.0-18.0); IMM GRAN# 0.08 X1000 (0.0-0.04); IMM GRAN% 0.4 % (0.0-0.5); LYMPH# 0.64 X1000 (1.2-3.4); LYMPH% 2.8 % (20.5-51.1); MCH 29.3 PG (27-31); MCHC 32.2 g/dL (33-37); MONO# 0.69 X1000 (0.11-0.59); MPV 10.6 FL (7.4-10.4); NEUT# 21.38 X1000 (1.4-6.5); NEUT% 93.7 % (42.2-75.2); PLT 331 X1000 (130-400); RBC 4.98 XMIL (4.7-6.1); RDW 14.4 % (11.5-14.5); WBC 22.81 X1000 (4.8-10.8)
[2018-08-06 05:51] LABS: AGAP 10; BUN 22 mg/dL (8-22); CALCIUM 8.8 mg/dL (8.8-10.2); CHLORIDE 95 mmol/L (98-107); COSMO 283; CREATININE 0.6 mg/dL (0.7-1.2); ESTIMATED GFR > 60; GLUCOSE 134 mg/dL (70-104); POTASSIUM 3.6 mmol/L (3.5-5.1); SODIUM 139 mmol/L (136-145); TCO2 34 mmol/L (25-35)
[2018-08-06] MEDS: PROTONIX PO SCH (06:08)
[2018-08-06] MEDS: SOLU-MEDROL IV SCH ×4 (06:08→23:51)
[2018-08-06 07:10] LABS: LYMPHS 4 % (21-51); MONO 4 % (1-9); SEGS 92 % (42-75)
--- NOTE | 2018-08-06 08:20 | Diag Imaging Result Doc PS360 ---
CHEST-1 VIEW - 08/06/2018 INDICATION: SOB COMPARISON: 08/05/2018 FINDINGS: The lungs are normally expanded and clear. Heart size and mediastinal contours are normal. No pneumothorax or pleural effusion. IMPRESSION: Negative exam. Electronically signed by Ottoniel Falcon 08/06/2018 8:18 AM
[2018-08-06] MEDS: LASIX PO SCH (10:01)
[2018-08-06 12:36] LABS: HEPATITIS PROFILE ACUTE SEE COMMENTS
--- NOTE | 2018-08-06 13:33 | ECHO REPORT ---
ORDER DATE: 08/05/2018 ECHOCARDIOGRAPHIC MEASUREMENTS: 1. Interventricular septum 0.7. 2. Left ventricular posterior wall 0.7. 3. Diastolic diameter 4.5. 4. Left ventricular systolic diameter 3.3. 5. Left atrium 3.9. 6. Aorta 2.5. SUMMARY: 1. Technically suboptimal study. Poor acoustic window. 2. Aortic valve leaflets are trileaflet. 3. Mitral valve was normal. Tricuspid valve was normal. Pulmonic valve not well visualized. 4. Aortic valve leaflets were trileaflet. 5. Normal left ventricular cavity size. Estimated ejection fraction of 60%. There is trace to mild mitral regurgitation. Mild tricuspid regurgitation. Peak velocity across the tricuspid valve less than 2 m/sec. Peak velocity across the aortic valve less than 2 m/sec by Doppler studies. There is no aortic stenosis or regurgitation. Moderate band noted in the right ventricle, normal variant. 6. There is no pericardial effusion. cc: Andres Daily MD
--- NOTE | 2018-08-06 17:33 | PROGRESS NOTE ---
DATE: 08/06/2018 INTERVAL HISTORY: The patient reports significant improvement in dyspnea. Still with some mild wheezing, but much improved from previous. Still with some nonproductive cough. No new complaints. No acute events overnight. REVIEW OF SYSTEMS: A 12 point review of systems negative except as per Interval History. PHYSICAL EXAMINATION: Vitals: T-max 99.6 degrees, pulse 90, respirations 17, blood pressure 110/66, O2 saturation 90% on 40% venturi mask. General: No acute distress. HEENT: Normocephalic, atraumatic. Moist mucous membranes. No cervical adenopathy. Cardiovascular: Regular rate and rhythm. No murmurs, rubs, or gallops. Pulmonary: Moderately decreased breath sounds throughout. Slight expiratory wheeze with no rales or rhonchi noted. Abdomen: Soft, nontender, nondistended. Bowel sounds positive. Extremities: Peripheral pulses intact. No clubbing, cyanosis, or edema. Neurologic: Cranial nerves grossly intact. No focal deficits identified. Psychiatric: Normal mood and affect. Awake, alert, and oriented x3. Skin: No new rashes or lesions seen. DIAGNOSTIC STUDIES: WBC 20, hemoglobin 14.6, hematocrit 45.3, platelets 331. ABG with pH 7.4, pCO2 of 60, PO2 of 89 on BiPAP. Basic metabolic panel unremarkable aside from glucose of 134. Chest x-ray essentially within normal limits. ASSESSMENT AND PLAN: 1. Acute on chronic hypoxic and hypercapnic respiratory failure secondary to chronic obstructive pulmonary disease (COPD) exacerbation and possibly pulmonary edema: The patient off BiPAP, but continues to be on 40% Ventimask. Has had some improvement in oxygenation and marked improvement in symptoms. Much less wheezing. Continue steroids and nebulizers. Continue antibiotics for now, but no clear evidence of pneumonia. Continue on diuretics, given possible pulmonary edema seen on imaging on admission and significantly elevated BNP at 3590 a couple days ago. Echocardiogram performed but report pending. CO2 much improved from previous on most recent ABG and appears to be likely baseline at this point. 2. Elevated liver function tests (LFTs). Ultrasound unremarkable. Suspect fatty liver. Trending down on last check. 3. Tobacco abuse. Patient counseled on cessation. 4. Hyperglycemia: likely steroid induced but will check A1C and monitor. 5. Deep vein thrombosis (DVT) prophylaxis. SCDs. [facility]
[2018-08-06] MEDS: NICODERM PATCH TD PRN (23:55)
[2018-08-07] MEDS: DUONEB (A & A) INH SCH ×6 (03:15→23:20)
[2018-08-07] MEDS: NS 1,000 ML IV SCH ×3 (04:07→16:39)
[2018-08-07 05:05] LABS: ALLEN TEST YES; BE 10.9 mmoll (-3.0-3.0); BLOOD TYPE ARTERIAL; HCO3-(ACT) 33.2 mmoll (20.0-26.0); O2(CT) 18.3 mL/dL (15.0-23.0); O2HB 90.5 % (95.0-99.0); PO2(98.6) 63 mmHg (60-100); SAMPLE BLOOD; SAO2 93.1 % (95.0-100.0); THB 14.4 g/dL (11.5-17.4)
[2018-08-07 05:06] LABS: PCO2(98.6) 62 mmHg (35-45)
[2018-08-07 05:07] LABS: MODALITY VENTIMASK
[2018-08-07] MEDS: NORCO-7.5 PO PRN ×3 (05:51→22:14)
[2018-08-07] MEDS: SOLU-MEDROL IV SCH ×3 (05:51→17:10)
[2018-08-07] MEDS: PROTONIX PO SCH ×2 (05:51→07:17)
[2018-08-07 06:03] LABS: BASO# 0.01 X1000 (0.0-0.2); HEMATOCRIT 43.6 % (42.0-52.0); IMM GRAN# 0.09 X1000 (0.0-0.04); IMM GRAN% 0.3 % (0.0-0.5); LYMPH# 0.44 X1000 (1.2-3.4); LYMPH% 1.6 % (20.5-51.1); MCH 28.7 PG (27-31); MCHC 32.1 g/dL (33-37); MCV 89.5 FL (81-99); MONO# 0.81 X1000 (0.11-0.59); MPV 10.3 FL (7.4-10.4); NEUT# 25.54 X1000 (1.4-6.5); NEUT% 95.1 % (42.2-75.2); PLT 350 X1000 (130-400); RBC 4.87 XMIL (4.7-6.1); RDW 14.5 % (11.5-14.5); WBC 26.89 X1000 (4.8-10.8)
[2018-08-07 06:21] LABS: HEMOGLOBIN A1C 5.3 % (4.8-6.0)
[2018-08-07 06:28] LABS: AGAP 11; BUN 21 mg/dL (8-22); CALCIUM 8.4 mg/dL (8.8-10.2); CHLORIDE 96 mmol/L (98-107); COSMO 284; CREATININE 0.6 mg/dL (0.7-1.2); ESTIMATED GFR > 60; GLUCOSE 121 mg/dL (70-104); POTASSIUM 3.7 mmol/L (3.5-5.1); SODIUM 140 mmol/L (136-145); TCO2 33 mmol/L (25-35)
--- NOTE | 2018-08-07 06:47 | Diag Imaging Result Doc PS360 ---
EXAM: CHEST-1 VIEW HISTORY: SOB TECHNIQUE: Chest single view COMPARISON: 08/06/2018 FINDINGS: The lungs are well expanded. The heart is not enlarged. The vessels are not distended. There are no infiltrates. No effusion identified. IMPRESSION: Negative exam. Electronically signed by Nathan Guallpa 08/07/2018 6:44 AM
[2018-08-07] MEDS: LASIX PO SCH (08:17)
--- NOTE | 2018-08-07 10:51 | Diag Imaging Result Doc PS360 ---
EXAM: CT ANGIOGRM PULMONARY ARTERIES 08/07/2018 HISTORY: Rule out PE TECHNIQUE: This exam was performed using automated exposure control, adjustment of mA or kV according to patient size, and/or use of iterative reconstruction technique. COMMENT: 3-D MIPS were performed. There are no previous studies available for comparison. There are no filling defects in the pulmonary arteries. The aorta is not distended and there is no evidence of dissection. There is apparent volume loss and opacity adjacent to the major fissure in the right lower lobe which may be due to atelectasis or fibrosis. There are linear opacities in both costophrenic sulci particularly in the right lower lobe which may be due to atelectasis or fibrosis. The possibility of mild bronchopneumonia cannot be excluded. There are very small pleural fluid collections bilaterally. There is no evidence of significant adenopathy. There is some retained esophageal contents particularly above the level of the mario. The esophagus is not distended. The regional skeleton is intact. IMPRESSION: No pulmonary emboli. Small pleural effusions and basilar atelectasis versus pneumonia. Retained esophageal secretions of uncertain significance. Electronically signed by Zeeshan Recinos 08/07/2018 10:49 AM
[2018-08-07] MEDS: LEVAQUIN 500 MG/D5W 500 MG/100 ML IVPB IV SCH (12:30)
[2018-08-07] MEDS: NICODERM PATCH TD PRN (16:46)
[2018-08-07] MEDS ORDERED: SALINE LOCK IV FLUID XX ONE (18:15)
--- NOTE | 2018-08-08 01:08 | PROGRESS NOTE ---
DATE: 08/07/2018 SUBJECTIVE: Patient resting in bed. He is currently on a Ventimask. Not in any obvious distress. OBJECTIVE: Vital signs: Temperature is 98.1 degrees, pulse 80, respirations 16, blood pressure 122/79, oxygen saturation is 92%. HEENT: Atraumatic, normocephalic. Cardiovascular: S1, S2. Respiratory: Evidence of good air entry bilaterally. Abdomen: Soft, nontender. No masses felt. Extremities: No evidence of edema. Central nervous system: No obvious focal deficits noted. LABORATORIES: WBC is 26.89, hematocrit is 43.6, with a platelet count of 359,000. AB.4/62/63/98.1%. Sodium 140, potassium 3.7, chloride 96, bicarb 30, BUN is 21, creatinine 0.6. IMAGING STUDIES: X-ray of the chest shows negative exam. ASSESSMENT AND PLAN: 1. Acute respiratory failure secondary to chronic obstructive pulmonary disease exacerbation. We will maintain the patient on Ventimask and continue nebulized bronchodilators, steroids, as well as antibiotics. Use BiPAP if needed. On today's chest x-ray, it shows that the lungs are well expanded, and there is no evidence of any infiltrates or effusion. 2. Abnormal liver function tests. CHON level as well as a hepatitis panel are currently negative, and abdominal ultrasound does not show any significant abnormal pathology. In actual fact, the patient's LFTs seem to be improving. We will continue to follow up on the patient's hepatic function tests. 3. Tobacco use history. Nicotine patch for now. The patient needs to quit smoking. 4. Deep vein thrombosis prophylaxis. SCD. 5. Gastrointestinal prophylaxis. PPI. cc: Honorio Davies MD
[2018-08-08] MEDS: DUONEB (A & A) INH SCH ×6 (03:20→23:25)
[2018-08-08] MEDS: NORCO-7.5 PO PRN ×3 (04:21→22:20)
[2018-08-08] MEDS: PROTONIX PO SCH ×2 (04:57→06:05)
[2018-08-08 05:16] LABS: ALLEN TEST YES; BE 10.2 mmoll (-3.0-3.0); BLOOD TYPE ARTERIAL; HCO3-(ACT) 32.7 mmoll (20.0-26.0); METHB 0.7 % (0.0-1.5); O2(CT) 19.9 mL/dL (15.0-23.0); O2HB 92.2 % (95.0-99.0); PO2(98.6) 66 mmHg (60-100); SAMPLE BLOOD; SAO2 94.7 % (95.0-100.0); THB 15.4 g/dL (11.5-17.4)
[2018-08-08 05:18] LABS: MODALITY VENTIMASK; PCO2(98.6) 61 mmHg (35-45)
[2018-08-08 05:29] LABS: BASO# 0.01 X1000 (0.0-0.2); HEMOGLOBIN 14.6 g/dL (14.0-18.0); IMM GRAN# 0.08 X1000 (0.0-0.04); IMM GRAN% 0.4 % (0.0-0.5); LYMPH# 0.55 X1000 (1.2-3.4); LYMPH% 2.4 % (20.5-51.1); MCH 28.7 PG (27-31); MCHC 32.4 g/dL (33-37); MCV 88.6 FL (81-99); MONO# 1.14 X1000 (0.11-0.59); MPV 10.3 FL (7.4-10.4); NEUT# 20.99 X1000 (1.4-6.5); NEUT% 92.2 % (42.2-75.2); PLT 361 X1000 (130-400); RBC 5.08 XMIL (4.7-6.1); RDW 14.6 % (11.5-14.5); WBC 22.77 X1000 (4.8-10.8)
[2018-08-08 05:49] LABS: AGAP 12; BUN 21 mg/dL (8-22); CALCIUM 8.6 mg/dL (8.8-10.2); CHLORIDE 95 mmol/L (98-107); COSMO 284; CREATININE 0.6 mg/dL (0.7-1.2); ESTIMATED GFR > 60; GLUCOSE 122 mg/dL (70-104); POTASSIUM 3.6 mmol/L (3.5-5.1); SODIUM 140 mmol/L (136-145); TCO2 33 mmol/L (25-35)
[2018-08-08 06:44] LABS: LYMPHS 4 % (21-51); MONO 4 % (1-9); SEGS 92 % (42-75)
--- NOTE | 2018-08-08 07:11 | Diag Imaging Result Doc PS360 ---
EXAM: CHEST-1 VIEW 08/08/2018 HISTORY: SOB TECHNIQUE: AP portable at 0549 COMMENT: There is no evidence of acute cardiac or pulmonary disease. Compared to 08/07/2018 there has been no significant change. IMPRESSION: Stable chest. Electronically signed by Zeeshan Recinos 08/08/2018 7:08 AM
[2018-08-08] MEDS: LASIX PO SCH (09:04)
[2018-08-08] MEDS: LEVAQUIN 500 MG/D5W 500 MG/100 ML IVPB IV SCH (09:04)
[2018-08-08] MEDS: PREDNISONE PO SCH (09:04)
--- NOTE | 2018-08-08 13:32 | PROGRESS NOTE ---
DATE: 08/08/2018 INTERVAL HISTORY: Patient dyspnea continues to improve slowly. Essentially no wheezing at this point. Oxygenation improving this being weaned down. No new complaints. No acute events overnight. REVIEW OF SYSTEMS: Twelve point review of systems negative except as per interval history. WBC 22.7, hemoglobin 14.6, hematocrit 45.0, platelets 361,000. ABG with pH 7.4, pCO2 61, PO2 66 on 40% Ventimask. Basic metabolic panel unremarkable aside from glucose 122. IMAGING: Chest x-ray with no acute process. VITALS: T-max 98.9, pulse 75, respirations 18, blood pressure 124/83, O2 saturation 98% on the 40 % Ventimask. EXAM: No acute distress, vitals as above.HEENT: Normocephalic, atraumatic moist mucous membranes no cervical adenopathy . Cardiovascular: Regular rate and rhythm, no murmurs , rubs or gallops. Pulmonary: Moderately decreased breath sounds throughout but no further wheezing, rales, rhonchi. Abdomen: Is soft, nontender, nondistended, bowel sounds positive. Extremity: Peripheral pulse intact no cyanosis, clubbing or edema . Neuro: Cranial nerves grossly intact no focal deficit identified. Psychiatric: Normal mood and affect, awake, alert, oriented x3 . Skin: No new rashes identified. ASSESSMENT AND PLAN: 1. Acute on chronic hypoxic and hypercapnic respiratory failure secondary to chronic obstructive pulmonary disease exacerbation and possibly pulmonary edema . Patient remained off BiPAP. On 40% Ventimask this morning but discussed wean down with nursing as he has been saturating quite well on this. Wheezing essentially resolved. Will wean steroids, continue nebulizers, continue antibiotics for now, anticipate transitioning to oral Levaquin on discharge to finish course of treatment. Continue moderate dose oral diuretic given markedly elevated BNP on admission as possible pulmonary edema on initial imaging . Echocardiogram performed and showed normal ejection fraction but was otherwise a technically limited study. Suspect pulmonary hypertension versus chronic diastolic congestive heart failure, CO2 remains elevated but likely baseline at this point . 2. Elevated liver function tests, ultrasound unremarkable, suspect mild fatty liver, liver function tests were trending down on last check, no need further intervention at this time. 3. Tobacco abuse patient counseled on cessation is doing well with nicotine patch, will plan on prescribing patch on discharge. 4. Hyperglycemia likely steroid induced, hemoglobin A1 5.3 which is consistent with that. 5. Deep vein thrombosis prophylaxis SCDs. [facility]
[2018-08-09] MEDS: DUONEB (A & A) INH SCH ×7 (03:30→23:37)
[2018-08-09] MEDS: NORCO-7.5 PO PRN ×3 (03:46→21:32)
[2018-08-09 05:12] LABS: ALLEN TEST YES; BE 10.3 mmoll (-3.0-3.0); BLOOD TYPE ARTERIAL; HCO3-(ACT) 32.6 mmoll (20.0-26.0); PO2(98.6) 50 mmHg (60-100); SAMPLE BLOOD; pH(98.6) 7.42 (7.35-7.45)
[2018-08-09 05:13] LABS: MODALITY CANNULA; PCO2(98.6) 57 mmHg (35-45)
[2018-08-09] MEDS: PROTONIX PO SCH ×2 (05:37→06:11)
[2018-08-09 05:49] LABS: BASO# 0.01 X1000 (0.0-0.2); BASO% 0.1 % (0.0-0.8); EOS# 0.02 X1000 (0.0-0.7); EOS% 0.1 % (0.0-10.0); HEMATOCRIT 45.2 % (42.0-52.0); HEMOGLOBIN 14.9 g/dL (14.0-18.0); IMM GRAN% 0.5 % (0.0-0.5); LYMPH# 1.28 X1000 (1.2-3.4); LYMPH% 6.7 % (20.5-51.1); MCV 87.9 FL (81-99); MONO# 1.65 X1000 (0.11-0.59); MONO% 8.7 % (1.7-9.3); MPV 10.4 FL (7.4-10.4); NEUT# 15.96 X1000 (1.4-6.5); NEUT% 83.9 % (42.2-75.2); PLT 348 X1000 (130-400); RBC 5.14 XMIL (4.7-6.1); RDW 14.8 % (11.5-14.5); WBC 19.02 X1000 (4.8-10.8)
[2018-08-09 06:38] LABS: AGAP 13; BUN 22 mg/dL (8-22); CALCIUM 8.9 mg/dL (8.8-10.2); CHLORIDE 93 mmol/L (98-107); COSMO 281; CREATININE 0.7 mg/dL (0.7-1.2); ESTIMATED GFR > 60; GLUCOSE 95 mg/dL (70-104); POTASSIUM 3.3 mmol/L (3.5-5.1); SODIUM 139 mmol/L (136-145); TCO2 33 mmol/L (25-35)
--- NOTE | 2018-08-09 07:42 | Diag Imaging Result Doc PS360 ---
EXAM: CHEST-1 VIEW 08/09/2018 HISTORY: SOB TECHNIQUE: AP portable at 0540 COMMENT: There is no evidence of acute cardiac or pulmonary disease. Compared to 08/08/2018 there has been no significant change in the appearance of the chest. IMPRESSION: No evidence of acute disease. Electronically signed by Zeeshan Recinos 08/09/2018 7:39 AM
[2018-08-09 08:22] LABS: LYMPHS 10 % (21-51); MONO 10 % (1-9); SEGS 80 % (42-75)
[2018-08-09 08:23] LABS: ANISOCYTOSIS 1+; HYPOCHROM 1+
[2018-08-09] MEDS: LASIX PO SCH (08:24)
[2018-08-09] MEDS: LEVAQUIN 500 MG/D5W 500 MG/100 ML IVPB IV SCH (08:24)
[2018-08-09] MEDS: PREDNISONE PO SCH (08:24)
[2018-08-09] MEDS ORDERED: KLOR-CON PO ONE (14:40)
--- NOTE | 2018-08-09 15:03 | PROGRESS NOTE ---
DATE: 08/09/2018 SUBJECTIVE: The patient resting in bed. Not in any obvious distress. OBJECTIVE: Vital signs: Temperature 98.7 degrees, pulse is 88, respirations 18, blood pressure 111/67, oxygen saturation is 90%. HEENT: Atraumatic, normocephalic. Cardiovascular: S1, S2. Respiratory: Has evidence of good air entry bilaterally. Abdomen: Soft, nontender. No masses felt. Extremities: No evidence of edema. Central nervous system: No obvious focal deficits. DIAGNOSTIC STUDIES: WBC is 19.03, hematocrit is 45.2 with a platelet count of 348,000. ABG 7.42/57/[*]. Sodium is 139, potassium 3.3, chloride is 93, bicarbonate 23, BUN is 22, creatinine 0.7. ASSESSMENT AND PLAN: 1. Acute respiratory failure secondary to chronic obstructive pulmonary disease (COPD) exacerbation. Maintain patient on Ventimask for now. Continue nebulized bronchodilators, steroids, as well as antibiotics. Use BiPAP if needed. 2. Abnormal liver function tests. Follow up on liver function tests. 3. Hypokalemia. Replace potassium level. Check magnesium level. 4. Tobacco use history. The patient needs to quit cigarette smoking. Use nicotine patch for now. 5. Deep vein thrombosis (DVT) prophylaxis. Sequential compression devices (SCDs). 6. Gastrointestinal (GI) prophylaxis. Proton pump inhibitor (PPI). cc: Honorio Davies MD
[2018-08-09] MEDS: NICODERM PATCH TD PRN (19:47)
[2018-08-10] MEDS: DUONEB (A & A) INH SCH ×3 (03:32→10:36)
[2018-08-10] MEDS: NORCO-7.5 PO PRN (04:10)
[2018-08-10 04:41] LABS: ALLEN TEST YES; BE 10.8 mmoll (-3.0-3.0); BLOOD TYPE ARTERIAL; HCO3-(ACT) 33.1 mmoll (20.0-26.0); METHB 0.9 % (0.0-1.5); O2(CT) 18.9 mL/dL (15.0-23.0); PO2(98.6) 54 mmHg (60-100); SAMPLE BLOOD; SAO2 90.5 % (95.0-100.0); THB 15.3 g/dL (11.5-17.4); pH(98.6) 7.44 (7.35-7.45)
[2018-08-10 04:47] LABS: MODALITY ROOM AIR; O2HB 88.2 % (95.0-99.0); PCO2(98.6) 55 mmHg (35-45)
[2018-08-10 05:20] LABS: BASO# 0.01 X1000 (0.0-0.2); BASO% 0.1 % (0.0-0.8); EOS# 0.08 X1000 (0.0-0.7); EOS% 0.5 % (0.0-10.0); HEMATOCRIT 46.3 % (42.0-52.0); HEMOGLOBIN 14.8 g/dL (14.0-18.0); IMM GRAN# 0.11 X1000 (0.0-0.04); IMM GRAN% 0.7 % (0.0-0.5); LYMPH# 1.16 X1000 (1.2-3.4); LYMPH% 6.9 % (20.5-51.1); MCH 28.1 PG (27-31); MONO# 1.53 X1000 (0.11-0.59); MONO% 9.1 % (1.7-9.3); MPV 10.1 FL (7.4-10.4); NEUT# 14.01 X1000 (1.4-6.5); NEUT% 82.7 % (42.2-75.2); PLT 360 X1000 (130-400); RBC 5.26 XMIL (4.7-6.1); RDW 14.7 % (11.5-14.5)
[2018-08-10] MEDS: PROTONIX PO SCH ×2 (05:55→07:31)
[2018-08-10 05:57] LABS: AGAP 11; ALB/GLOB RATIO 1.7; ALBUMIN 3.5 g/dL (3.5-5.0); ALKALINE PHOSPHATASE 76 U/L (32-122); BUN 19 mg/dL (8-22); CALCIUM 8.7 mg/dL (8.8-10.2); CHLORIDE 96 mmol/L (98-107); COSMO 283; CREATININE 0.7 mg/dL (0.7-1.2); ESTIMATED GFR > 60; GLUCOSE 83 mg/dL (70-104); GOT 21 U/L (10-34); GPT 54 U/L (10-44); SODIUM 141 mmol/L (136-145); TCO2 34 mmol/L (25-35); TOTAL BILIRUBIN 0.49 mg/dL (0.20-1.00); TOTAL PROTEIN 5.6 g/dL (6.3-8.3)
--- NOTE | 2018-08-10 07:31 | Diag Imaging Result Doc PS360 ---
EXAM: CHEST-1 VIEW HISTORY: SOB TECHNIQUE: Chest single view COMPARISON: 08/09/2018 FINDINGS: The lungs are hyperexpanded. The heart is not enlarged. The vessels are not distended. There are no infiltrates. No effusion identified. IMPRESSION: Hyperexpanded lungs, otherwise negative exam. Electronically signed by Nathan Guallpa 08/10/2018 7:28 AM
[2018-08-10] MEDS: PREDNISONE PO SCH (08:45)
[2018-08-10] MEDS: LASIX PO SCH (08:45)
[2018-08-10] MEDS: LEVAQUIN 500 MG/D5W 500 MG/100 ML IVPB IV SCH (08:45)
[2018-08-10 16:54] VITALS: BP 106/67
--- NOTE | 2018-08-11 05:11 | DISCHARGE SUMMARY ---
ADMISSION DATE: 08/04/2018 DISCHARGE DATE: PRINCIPAL DIAGNOSIS: Acute hypercapnic respiratory failure. SECONDARY DIAGNOSES: 1. Chronic obstructive pulmonary disease exacerbation. 2. Pulmonary edema. 3. Abnormal liver function test. 4. Tobacco use history. DISCHARGE MEDICATIONS: Include the following: Combivent Respimat 1 puff every 6 hours, Symbicort 2 puffs twice a day, DuoNeb unit dose q.6 hours, Medrol Dosepak as directed, Levaquin 500 mg p.o. once a day. HOSPITAL COURSE: Mr. Abraham Jensen is a 48-year-old male with a history of COPD and tobacco use history who presented to the hospital because of shortness of breath which had been going on for about 2 weeks. When he presented to the hospital, x-ray of his chest showed evidence of mild pulmonary edema. ABG showed evidence of significant CO2 retention. Patient required BiPAP. In addition, he was placed on nebulized bronchodilators, as well as steroids and also antibiotics with regards to his COPD. The patient was transferred to the cardiac intensive care unit where he did improve over time. At this time, he has done well. He is stable. He can now be discharged home. Diet will be healthy heart. Activities will be as tolerated. The patient is aware of the importance of quitting cigarette smoking. The patient will require home oxygen and also a nebulizer machine as well as a portable BiPAP unit. He will need to follow up with pulmonology after discharge. cc: Honorio Davies MD
== END 2018-08-10 17:22 | disposition home or self-care (01) | DRG 189 ==
LOC: ED 16:01 → SUATTDRO 17:47 → EDIPHOLD 17:47 → 3S 08-05 19:05
PROVIDERS: ATTEND Internal Medicine
CPT/HCPCS: 71010; 71045; 71275; 76700; 80048; 80053; 80074; 81001; 82550; 82728; 82805; 83036; 83880; 84484; 85025; 85379; 85610; 85730; 86038; 86039; 87040; 87070; 87205; 89220; 93005; 93306; 94640; 94660; 94761; 94799; 96365; 96375; 96376; 99285; A9270; J0696; J1940; J1956; J2930; J7030; J7506; J7512; Q9967